=== PATIENT | female | born 1995 | race Asian ===

== ENCOUNTER 2017-04-06 00:58 | Emergency (ER) | payer OTHER ==
[~2017-04-06] VITALS: Ht 157.5 cm; Wt 58.5 kg
[2017-04-06 01:04] VITALS: Ht 157.5 cm; Wt 58.5 kg
--- NOTE | 2017-04-06 04:08 | ERD ---
ER Documentation Chief Complaint Date/Time DATE: 04/06/17 TIME: 04:06 Chief Complaint painful urination HPI 22-year-old female presents here in emergency department for complaints of pain upon urination that started yesterday.patient was treated for urinary tract infection 2 weeks ago. Patient had a three-day course of ciprofloxacin. Patient denies any vaginal itching or vaginal discharge. Patient denies any vaginal bleeding. ROS All systems reviewed and are negative except as per history of present illness. Medications Home Meds Reported Medications [none] Unknown Strength No Conflict Check 04/06/17 Allergies Allergies: Coded Allergies: No Known Allergy (Unverified , 04/06/17) PMhx/Soc Medical and Surgical Hx: pt denies Medical Hx, pt denies Surgical Hx Hx Miscellaneous Medical Probl: No Hx Alcohol Use: No Hx Substance Use: No Hx Tobacco Use: No Smoking Status: Never smoker FmHx Family History: No coronary disease, No diabetes, No other Physical Exam Vitals Vital Signs Date Time Temp Pulse Resp B/P Pulse Ox O2 Delivery O2 Flow Rate FiO2 04/06/17 01:04 98.3 74 210 104/80 100 Physical Exam GENERAL: The patient is well developed and appropriate for usual state of health, in no apparent distress. CHEST: Clear to auscultation bilaterally. There are no rales, wheezes or rhonchi. HEART: Regular rate and rhythm. No murmurs, clicks, rubs or gallops. No S3 or S4. ABDOMEN: Soft, nontender and nondistended. Good bowel sounds. No rebound or guarding. No gross peritonitis. No gross organomegaly or masses. No Rivera sign or McBurney point tenderness. BACK: No midline or flank tenderness. EXTREMITIES: Equal pulses bilaterally. There is no peripheral clubbing, cyanosis or edema. No focal swelling or erythema. Full range of motion. Grossly neurovascularly intact. NEURO: Alert and oriented. Cranial nerves 2-12 intact. Motor strength in all 4 extremities with 5/5 strength. Sensation grossly intact. Normal speech and gait. SKIN: There is no apparent rash or petechia. The skin is warm and dry. HEMATOLOGIC AND LYMPHATIC: There is no evidence of excessive bruising or lymphedema. No gross cervical, axillary, or inguinal lymphadenopathy. Results 24 hrs Laboratory Tests Test 04/06/17 03:55 Urine Color YELLOW Urine Clarity CLEAR Urine pH 6.0 Urine Specific [place] 1.016 Urine Ketones 1+mg/dL Urine Nitrite NEGATIVEmg/dL Urine Bilirubin NEGATIVEmg/dL Urine Urobilinogen NEGATIVEmg/dL Urine Leukocyte Esterase NEGATIVELeu/ul Urine Hemoglobin NEGATIVEmg/dL Urine Glucose NEGATIVEmg/dL Urine Total Protein NEGATIVEmg/dl Procedures/MDM Medical decision making: Patient does not have any urinary tract infection, no symptoms of vaginitis, vaginal exam is normal, no symptoms of PID. No Bartholin' s cyst abscess, or any acute bacterial infection in the perineal area. Patient is advised to see gynecology specialist for further evaluation and management. Patient will be given ibuprofen for pain, tramadol for severe pain, patient is currently on doxycycline is advised to be continuing this medication. Disposition: Home. Stable. Departure Diagnosis: Primary Impression: Genitourinary symptoms Condition: Stable GI VILLA NP Apr 06, 2017 04:08
[2017-04-06 04:22] LABS: ADD UMIC NO; UR ASCORBIC ACID NEGATIVE (NEGATIVE); UR BILIRUBIN (Dip) NEGATIVE (NEGATIVE); UR BLOOD (Dip) NEGATIVE (NEGATIVE); UR CLARITY CLEAR (CLEAR); UR COLOR YELLOW (YELLOW); UR GLUCOSE (Dip) NEGATIVE (NEGATIVE); UR KETONES (Dip) 1+ mg/dL (NEGATIVE); UR LEUKOCYTE ESTERASE (Dip) NEGATIVE Leu/ul (NEGATIVE); UR NITRITE (Dip) NEGATIVE (NEGATIVE); UR SPECIFIC GRAVITY (Dip) 1.016 (1.003-1.030); UR TOTAL PROTEIN (Dip) NEGATIVE (NEGATIVE); UR UROBILINOGEN (Dip) NEGATIVE (NEGATIVE)
[2017-04-06] MEDS ORDERED: IBUP-1542 PO (04:46)
[2017-04-06] MEDS ORDERED: TRAM50TA2 PO (04:46)
== END 2017-04-06 05:12 | disposition home or self-care (01) ==
LOC: FTE 00:58
DX: R30.0 Dysuria (principal)
CPT/HCPCS: 81003; Z7502; 99283